=== PATIENT | female | born 2000 | race Two or more races ===

== ENCOUNTER 2025-05-18 08:43 | Emergency (ER) | payer OTHER ==
[~2025-05-18] VITALS: Ht 160 cm; Wt 115.0 kg
[2025-05-18] MEDS: ACETAMINOPHEN 325 MG TAB PO ONE (09:05)
--- NOTE | 2025-05-18 09:36 | DVH ---
CHEST RADIOGRAPH Indication: cp Technique: Single frontal view of the chest was obtained COMPARISON: None FINDINGS: Lines and Tubes: None Lungs: Clear Pleura: No effusion. No pneumothorax. Cardiomediastinal contours: Unremarkable Bones: Unremarkable IMPRESSION: No acute disease.
[2025-05-18 09:38] LABS: Mean Corpuscular Hemoglobin 26.6 pg (28.0-32.0)
[2025-05-18 09:39] LABS: Hematocrit 37.6 % (36.0-46.0); Hemoglobin 12.8 g/dL (12.2-16.2); Mean Corpuscular Volume 78.5 fL (80.0-100.0); Nucleated Red Blood Cells % 0.0 %
[2025-05-18 09:54] LABS: Chloride 104 mmol/L (98-107); Potassium 4.0 mmol/L (3.5-5.1); Sodium 139 mmol/L (136-145)
[2025-05-18 09:55] LABS: Anion Gap 9 (5-15); Calcium 9.4 mg/dL (8.7-10.4); Carbon Dioxide 26 mmol/L (20-31)
[2025-05-18 10:00] LABS: BUN/Creatinine Ratio 13.6 (10.0-20.0); Blood Urea Nitrogen 11 mg/dL (9-23)
[2025-05-18 10:07] LABS: Glucose 109 mg/dL (74-106)
--- NOTE | 2025-05-18 10:26 | ED.PDOC ---
History of Present Illness HPI Comments 25-year-old female presents to the ER with no prior medical history associated with a chief complaint of chest pain. Patient reports that she was reaching with the right arm where she had a sudden onset of right-sided chest pain 20 minutes ago. Patient notes that the chest pain is aching in nature. Denies any other symptoms at this time. Denies chills, fever, N/V/D, SOB. No other associated symptoms, modifiers, recent injuries or sick contacts present at this time. Chief Complaint: Chest Pain Time Seen by MD: 09:45 Reviewed Notes: Nurses Notes, Medications, Allergies Allergies: Coded Allergies: NO KNOWN ALLERGIES (Unverified , 05/18/25) Information Source: Patient Mode of Arrival: Ambulatory Severity: Moderate Timing: Minutes Duration: Since onset, Minutes Prehospital treatment: None Past Medical History PAST MEDICAL HISTORY: Denies Surgical History: Denies all surgeries BEATER OUT History: No Pertinent BEATER OUT History Family History Family History: Reviewed,noncontributory to illness, Unknown Social History Smoker: Non-Smoker Alcohol: Denies ETOH Use Drugs: Denies Drug Use Lives In: Home Constitutional: denies: chills, diaphoresis, fatigue, fever, malaise, sweats, weakness, others EENTM: denies: blurred vision, double vision, ear bleeding, ear discharge, ear drainage, ear pain, ear ringing, eye pain, eye redness, hearing loss, mouth pain, mouth swelling, nasal discharge, nose bleeding, nose congestion, nose pain, photophobia, tearing, throat pain, throat swelling, voice changes, others Respiratory: denies: cough, hemoptysis, orthopnea, SOB at rest, shortness of breath, SOB with excertion, stridor, wheezing, others Cardiovascular: reports: chest pain; denies: dizzy spells, diaphoresis, Dyspnea on exertion, edema, irregular heart beat, left arm pain, lightheadedness, palpitations, PND, syncope, others Gastrointestinal: denies: abdomen distended, abdominal pain, blood streaked bowels, constipated, diarrhea, dysphagia, difficulty swallowing, hematemesis, melena, nausea, poor appetite, poor fluid intake, rectal bleeding, rectal pain, vomiting, others Genitourinary: denies: abnormal vagina bleeding, burning, dyspareunia, dysuria, flank pain, frequency, hematuria, incontinence, pain, , vagina discharge, urgency, others Neurological: denies: dizziness, fainting, headache, left sided numbness, left sided weakness, numbness, paresthesia, pre-existing deficit, right sided numbness, right sided weakness, seizure, speech problems, tingling, tremors, weakness, others Musculoskeletal: denies: back pain, gout, joint pain, joint swelling, muscle pain, muscle stiffness, neck pain, others Integumetry: denies: bruises, change in color, change in hair/nails, dryness, laceration, lesions, lumps, rash, wounds, others Allergic/Immunocompromised: denies: Difficulty Healing, Frequent Infections, Hives, Itching, others Hematologic/Lymphatic: denies: anemia, blood clots, easy bleeding, easy bruising, swollen glands, others Endocrine: denies: excessive hunger, excessive sweating, excessive thirst, excessive urination, flushing, intolerance to cold, intolerance to heat, unexplained weight gain, unexplained weight loss, others Psychiatric: denies: anxiety, bipolar disorder, depression, hopeless, panic disorder, schizophrenia, sleepless, suicidal, others All Other Systems: Reviewed and Negative Physical Exam General Appearance: No Apparent Distress, Normal HEENT: Normal ENT Inspection, Pharynx Normal, TMs Normal Neck: Full Range of Motion, Non-Tender, Normal, Normal Inspection Respiratory: Chest Non-Tender, Lungs Clear, No Accessory Muscle Use, No Respiratory Distress, Normal Breath Sounds Cardiovascular: No Edema, No JVD, No Murmur, No Gallop, Normal Peripheral Pulses, Regular Rate/Rhythm Breast Exam: Deferred Gastrointestinal: No Organomegaly, Non Tender, No Pulsatile Mass, Normal Bowel Sounds, Soft Genitalia: Deferred Pelvic: Deferred Rectal: Deferred Extremities: No calf tenderness, Normal capillary refill, Normal inspection, Normal range of motion, Non-tender, No pedal edema Musculoskeletal : Apperance: Normal Neurologic: Alert, 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 Was a procedure done?: No Differential Dx Considerations may include: See MDM X-Ray, Labs, Meds, VS Vital Signs Date Time Temp Pulse Resp B/P (MAP) Pulse Ox O2 Delivery O2 Flow Rate FiO2 05/18/25 12:12 98.1 66 18 132/83 (99) 100 98.1 05/18/25 09:05 98.4 05/18/25 08:49 71 05/18/25 08:45 98.0 88 16 128/76 100 98.0 Lab Test 05/18/25 12:04 05/18/25 09:58 05/18/25 09:00 Range/Units Troponin I High Sensitivity Pending < 3 L < 3 L </=34 ng/L White Blood Count 6.8 4.4-10.8 10^3/uL Red Blood Count 4.79 4.0-5.20 10^6/uL Hemoglobin 12.8 12.2-16.2 g/dL Hematocrit 37.6 36.0-46.0 % Mean Corpuscular Volume 78.5 L 80.0-100.0 fL Mean Corpuscular Hemoglobin 26.6 L 28.0-32.0 pg Mean Corpuscular Hemoglobin Concent 33.9 32.0-36.0 g/dL Red Cell Distribution Width 14.5 H 11.8-14.3 % Platelet Count 307 140-450 10^3/uL Mean Platelet Volume 7.8 6.9-10.8 fL Neutrophils (%) (Auto) 55.9 37.0-80.0 % Lymphocytes (%) (Auto) 35.3 10.0-50.0 % Monocytes (%) (Auto) 6.4 0.0-12.0 % Eosinophils (%) (Auto) 2.0 0.0-7.0 % Basophils (%) (Auto) 0.4 0.0-2.0 % Neutrophils # (Auto) 3.8 1.6-8.6 10 ^3/uL Lymphocytes # (Auto) 2.4 0.4-5.4 10 ^3/uL Monocytes # (Auto) 0.4 0-1.3 10 ^3/uL Eosinophils # (Auto) 0.1 0-0.8 10 ^3/uL Basophils # (Auto) 0 0-0.2 10 ^3/uL Nucleated Red Blood Cells 0.0 % Sodium Level 139 136-145 mmol/L Potassium Level 4.0 3.5-5.1 mmol/L Chloride Level 104 98-107 mmol/L Carbon Dioxide Level 26 20-31 mmol/L Anion Gap 9 5-15 Blood Urea Nitrogen 11 9-23 mg/dL Creatinine 0.81 0.550-1.02 mg/dL Glomerular Filtration Rate Calc 104 >90 mL/min BUN/Creatinine Ratio 13.6 10.0-20.0 Serum Glucose 109 H 74-106 mg/dL Calcium Level 9.4 8.7-10.4 mg/dL Current Medications Medications (Trade) Dose Ordered Sig/Mark Route Start Time Stop Time Status Last Admin Acetaminophen (Tylenol Tablet) 650 mg ONCE ONCE PO 05/18/25 09:00 05/18/25 09:01 DC 05/18/25 09:05 Time of 1ST Reevaluation: 10:15 Reevaluation 1ST: Unchanged Patient Education/Counseling: Diagnosis, Treatment, Prognosis Family Education/Counseling: No Family Present Additional Information Medical Decision Making: A 25-year-old previously healthy female presents with acute chest pain. Given her age and symptoms, the differential diagnosis included acute coronary syndrome (ACS), myocarditis, pericarditis, pulmonary embolism, pneumothorax, pneumonia, gastroesophageal reflux, costochondritis, anxiety-related chest pain, and musculoskeletal strain. Workup: CBC: benign; no leukocytosis or anemia. BMP: unremarkable; no electrolyte abnormalities or renal dysfunction. Cardiac enzymes: two serial troponins negative, significantly decreasing likelihood of ACS or myocarditis. Chest X-ray: benign; no pneumothorax, pneumonia, widened mediastinum, or acute cardiopulmonary process. EKG: non-ischemic; normal rate and rhythm, no ST elevation/depression, no T-wave inversions. Vitals stable, patient nontoxic, speaking in full sentences, and without respiratory distress. ED Course / Assessment: The patients symptoms improved during her ED stay. No exertional component, radiation, diaphoresis, shortness of breath, hemoptysis, recent immobilization, estrogen use, or tachycardia to raise suspicion for PE. HEART score is low based on age, risk factors, EKG, and negative serial troponins, supporting a low risk for major cardiac events. Given stable vitals, benign exam, negative serial cardiac workup, and symptom improvement, serious cardiopulmonary etiologies were ruled out to a reasonable degree of certainty. Plan: Discharge with diagnosis of acute chest pain low risk. Outpatient follow-up with primary care within 2448 hours. Return precautions reviewed: worsening chest pain, shortness of breath, dizziness, syncope, palpitations, hemoptysis, fever, or any new concerning symptoms. Discussed strict return to ED if symptoms recur or worsen. This evaluation required interpretation of multiple cardiac tests, imaging, and serial diagnostics to rule out potentially high-risk conditions. SEPSIS Sepsis Screen Date sepsis recognized/suspect: May 18, 2025 Time Sepsis recognized/suspect: 0845 Recent Procedure: No On Antibiotic Therapy: No Respiratory Rate >20: No Heart Rate >90: No Temp<36 C (96.8 F) or >38.3 C: No SBP <90 or MAP <65 mmHG: No New Acute Mental Status Change: No Is the patient on CPAP, BIPAP,: No Physician Orders Troponin-I Hs (05/18/25 11:44) Electrocardigram (05/18/25 08:44) Electrocardigram (05/18/25 09:44) Electrocardigram (05/18/25 11:44) Chest Portable (05/18/25 08:58) Vital Signs Date Time Temp Pulse Resp B/P (MAP) Pulse Ox O2 Delivery O2 Flow Rate FiO2 05/18/25 12:12 98.1 66 18 132/83 (99) 100 98.1 05/18/25 09:05 98.4 05/18/25 08:49 71 05/18/25 08:45 98.0 88 16 128/76 100 98.0 Laboratory Tests Test 05/18/25 09:00 White Blood Count 6.8 10^3/uL (4.4-10.8) Medications Medications Dose Ordered Sig/Mark Route Start Time Stop Time Status Last Admin Dose Admin Acetaminophen 650 mg ONCE ONCE PO 05/18/25 09:00 05/18/25 09:01 DC 05/18/25 09:05 Departure 1 Departure Time of Disposition: 12:34 Impression: Primary Impression: Acute chest pain Disposition: 01 HOME / SELF CARE / HOMELESS Condition: Stable Additional Instructions: You presented today with chest pain. Your workup today was benign including labs, troponin, EKG, chest x-ray. Your pain may be from musculoskeletal strain, acid reflux, anxiety, or many other factors. It is important to follow up with your regular doctor within 1 week. If your symptoms worsen or you have any other concerns please return to the emergency room. Discharged With: Self Critical Care Note Critical Care Time?: No Stability Stability form required: No Heart Score Heart Score: Heart Score Response (Comments) Value History Slightly Suspicious 0 EKG Normal 0 Age <45 0 Risk Factors No known risk factors 0 Troponin Normal limit 0 Total 0 I personally scribed for EN SANTOS MD ([email or web address]) on 05/18/25 at 10:25. Electronically submitted by Obi Santiago ([email or web address]). EN SANTOS MD May 18, 2025 10:25
[2025-05-18 12:45] VITALS: BP 115/78; PULSE 67; RESP 18; TEMP 98.4; O2SAT 98
--- NOTE | 2025-05-20 07:35 | ECG ---
[facility] Test Date: 2025-05-18 Test Time: 08:49:07 Pat Name: SORIN PIKE Department: ED Room: Gender: F [employer] Justice: CALE : 2000 Requested By: EN SANTOS Order Number: [id number] Reading MD: Karlos Valle Measurements Intervals [place] Rate: 71 P: 18 MD: 146 QRS: 10 QRSD: 100 T: 26 QT: 373 QTc: 406 Interpretive Statements Sinus rhythm RSR' in V1 or V2, probably normal variant Baseline wander in lead(s) II,aVF Electronically Signed On 05-20-2025 17:55:05 PST by Karlos Valle Please click the below link to view image of tracing.
== END 2025-05-18 12:46 | disposition home or self-care (01) ==
LOC: ER 08:43
DX: R07.89 Other chest pain (principal); Z79.899 Other long term (current) drug therapy
CPT/HCPCS: 36415; 71045; 80048; 84484; 85025; 93005